=== PATIENT | male | born 1980 | race Caucasian/White ===

== ENCOUNTER 2019-10-06 10:58 | Emergency (ER) | payer OTHER ==
[~2019-10-06] VITALS: Ht 182.9 cm; Wt 112.5 kg
[~2019-10-06 10:58] MED LIST: NOHOMEMEDICATIONS
[2019-10-06] MEDS ORDERED: NORCO 5-325 TA1 EAC1 PO (11:15)
[2019-10-06 11:59] VITALS: BP 135/67
== END 2019-10-06 12:01 | disposition home or self-care (01) ==
LOC: M.ERS 10:58
DX: S61.201A Unspecified open wound of left index finger without damage to nail, initial encounter (principal); S61.203A Unspecified open wound of left middle finger without damage to nail, initial encounter; W26.0XXA Contact with knife, initial encounter; Y93.89 Activity, other specified; Y92.89 Other specified places as the place of occurrence of the external cause; Y99.8 Other external cause status

== ENCOUNTER 2020-01-24 21:48 | Emergency (ER) | payer OTHER ==
[~2020-01-24] VITALS: Ht 182.9 cm; Wt 106.6 kg
[~2020-01-24 21:48] MED LIST changes: +NORCO 5-325 TA1 EAC1 PO
[2020-01-24] MEDS ORDERED: GAS-X125 MG PO (22:09)
[2020-01-24] MEDS ORDERED: OMEPRAZOLE 20 M20 M1 PO (22:09)
[2020-01-24 22:21] LABS: URINE BILIRUBIN NEGATIVE (Negative); URINE BLOOD NEGATIVE (Negative); URINE CLARITY CLEAR; URINE COLOR YELLOW; URINE GLUCOSE-RANDOM NEGATIVE (Negative); URINE KETONES NEGATIVE (Negative); URINE LEUKOCYTES-REFLEX NEGATIVE (Negative); URINE NITRITE-REFLEX NEGATIVE (Negative); URINE PROTEIN NEGATIVE (Negative); URINE SPECIFIC GRAVITY 1.015 (1.005-1.030); URINE UROBILINOGEN 0.2 E.U./dl (0.2-1.0)
[2020-01-24 22:28] LABS: ABSOLUTE BASOPHILS 0.1 thou/uL (0.0-0.2); ABSOLUTE LYMPHOCYTES 1.7 thou/uL (0.8-5.3); ABSOLUTE MONOCYTES 0.6 thou/uL (0.0-1.2); ABSOLUTE NEUTROPHILS 6.5 thou/uL (1.6-8.1); BASOPHILS 0.6 %; EOSINOPHILS 0.3 %; HEMATOCRIT 41.2 % (42.0-52.0); HEMOGLOBIN 14.3 gm/dL (14.0-18.0); LYMPHOCYTES 18.9 %; MCH 30.6 pg (26.0-34.0); MCHC 34.7 g/dL (28.0-37.0); MONOCYTES 7.1 %; MPV 7.4 fl. (7.2-11.1); NUCLEATED RBCS 0 /100WBC; PLATELET COUNT* 282 thou/uL (150-400); POLYS 73.1 %; RBC 4.68 mil/uL (4.50-6.00); WBC 8.8 thou/uL (4.0-11.0)
[2020-01-24 22:37] LABS: CALCIUM 8.5 mg/dL (8.5-10.1); POTASSIUM 4.3 mmol/L (3.5-5.1)
[2020-01-24 22:41] LABS: ALBUMIN 3.9 g/dL (3.4-5.0); TOTAL BILIRUBIN 0.5 mg/dL (<0.1-1.0); TOTAL PROTEIN 7.8 g/dL (6.4-8.2)
[2020-01-25 00:18] VITALS: BP 128/72
--- NOTE | 2020-01-25 10:58 | EKG ---
[place] [address] ELECTROCARDIOGRAM REPORT Name: JOSSELINE REGAN [id number] Admission: 01/24/20 Attend Phys: Discharge: 01/25/20 Date of : 80 Date of Service: 01/24/202218 Report #: [id number] THIS REPORT FOR: //name// [facility] ED Test Date: 2020-01-24 Test Time: 22:19:01 Pat Name: JOSSELINE REGAN Department: Room: Gender: Forensic Psychiatrist: MERARI : 1980 Requested By: Maikol Martínez Order Number: [id number] MD: Orville Nye Measurements Intervals [place] Rate: 58 P: 52 FL: 175 QRS: 51 QRSD: 90 T: 55 QT: 390 QTc: 384 Interpretive Statements Sinus rhythm No previous ECG available for comparison Electronically Signed On 01-25-2020 10:56:52 CDT by Orville Nye [email or web address] <ELECTRONICALLY SIGNED> By: Orville Nye MD, [facility] 01/25/20 1056 18 18 Orville Nye MD, FACC /EPI
== END 2020-01-25 00:18 | disposition home or self-care (01) ==
LOC: M.ERS 21:48
PROVIDERS: Family Medicine
DX: R10.13 Epigastric pain (principal)